=== PATIENT | female | born 1975 | race Two or more races ===

== ENCOUNTER 2018-08-05 17:42 | Emergency (ER) | payer OTHER ==
[~2018-08-05] VITALS: Ht 157.5 cm; Wt 123.4 kg
[2018-08-05 18:39] LABS: MICROSCOPIC INDICATED
[2018-08-05 18:40] LABS: CULTURE INDICATED? YES
[2018-08-05 19:02] VITALS: BP 120/71
[2018-08-05] MEDS ORDERED: LIDOCAINE-MPF 1%, 2ML ONE ×2 (19:16→19:17)
[2018-08-05] MEDS ORDERED: CEFTRIAXONE 1,000 MG ONE (19:16)
[2018-08-05] MEDS ORDERED: CEFTRIAXONE 1,000 MG IM ONE (19:30)
== END 2018-08-05 19:31 | disposition home or self-care (01) ==
LOC: ED 19:10
DX: N30.01 Acute cystitis with hematuria (principal)
CPT/HCPCS: 81001; 87086; 96372; 99284; J0696

== ENCOUNTER 2021-07-07 06:05 | Emergency (ER) | payer OTHER ==
[~2021-07-07] VITALS: Ht 162.6 cm; Wt 120.8 kg
[2021-07-07 08:48] LABS: BASOPHILS % (AUTO) 0 % (0-1); EOSINOPHILS % (AUTO) 1 % (1-7); LYMPHOCYTES % (AUTO) 18 % (22-44); MEAN CORPUSCULAR HEMOGLOBIN 29.3 pg (27.0-34.8); MEAN CORPUSCULAR HGB CONC 33.5 g/dL (32.4-35.8); MEAN PLATELET VOLUME 8.5 fL (7.4-10.4); MONOCYTES % (AUTO) 4 % (2-9); NEUTROPHILS % (AUTO) 77 % (42-75); PLATELET COUNT 253 x10^3/uL (130-400); RED BLOOD COUNT 5.14 x10^6/uL (3.82-5.3); RED CELL DISTRIBUTION WIDTH 14.6 % (9.6-15.2)
[2021-07-07 09:09] LABS: CHLORIDE 107 mmol/L (98-107)
[2021-07-07 09:12] LABS: ALANINE AMINOTRANSFERASE 24 U/L (12-78); ALBUMIN 3.1 g/dL (3.4-5.0); ALKALINE PHOSPHATASE 96 U/L (45-117); ANION GAP 11 mmol/L (5-15); CALCIUM 8.9 mg/dL (8.5-10.1); TROPONIN I < 0.015 ng/mL (0.000-0.045)
[2021-07-07 09:13] LABS: BILIRUBIN,TOTAL 0.3 mg/dL (0.2-1.0); CREATININE 0.44 mg/dL (0.55-1.02); TOTAL PROTEIN 7.6 g/dL (6.4-8.2)
--- NOTE | 2021-07-07 09:47 | NUR ---
TO ROOM FROM LOBBY. NAD.
--- NOTE | 2021-07-07 10:39 | NUR ---
PT CONNECTED TO MONITORS, PT SON AT BEDSIDE. PT STATES HER HEAD "FEELS SHAKY AND HER TONGUE IS THROBBING"
[2021-07-07 11:12] VITALS: BP 122/70
--- NOTE | 2021-07-07 11:13 | NUR ---
PT RESTING COMFORTABLY ON GURNEY. NO NEEDS AT THIS TIME.
== END 2021-07-07 12:23 | disposition home or self-care (01) ==
LOC: ED 12:05
DX: R07.89 Other chest pain (principal); Z20.822 Contact with and (suspected) exposure to COVID-19; B34.9 Viral infection, unspecified; R43.9 Unspecified disturbances of smell and taste
CPT/HCPCS: 36415; 71045; 80053; 83880; 84484; 85025; 99284; U0003; U0005